=== PATIENT | female | born 2005 | race Caucasian/White ===

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

== ENCOUNTER 2023-01-04 23:12 | Emergency (ER) | payer MEDICAID ==
[~2023-01-04] VITALS: Ht 157.5 cm; Wt 125.0 kg
[2023-01-05 01:14] LABS: BILIRUBIN,URINE NEGATIVE (NEGATIVE); CLARITY,URINE CLEAR; COLOR,URINE YELLOW; GLUCOSE, URINE (UA) NEGATIVE (NEGATIVE); KETONES,URINE NEGATIVE (NEGATIVE); LEUKOCYTE ESTERASE ,URINE TRACE (NEGATIVE); NITRITE,URINE NEGATIVE (NEGATIVE); PROTEIN,URINE NEGATIVE (NEGATIVE)
[2023-01-05 01:22] LABS: BACTERIA,URINE TRACE /HPF; SQUAMOUS EPITHELIAL CELL,UR 0-2 /HPF; WBC,URINE RARE /HPF
--- NOTE | 2023-01-05 01:45 | ED General ---
General Chief Complaint: Abdominal/GI Problems Stated Complaint: SUN BURN,VOMITING Nursing Triage Note: PT AMB TO ED BY POV WITH C/O N/V, FEVER, AND SUNBURN. PT REPORTS SHE GOT SUNBURNED ON THURSDAY. N/V BEGAN TODAY. PT REPORTS ONE EPIDODE OF EMESIS, DENIES ABD PAIN. PT AFEBRILE UPON ARRIVAL. Allergies and Home Medications Allergies Coded Allergies: No Known Drug Allergies (Unverified , 06/15/22) Past Iplefan-Eflzkk-Flrrsg Hx Patient Social History Tobacco Use?: No Use of E-Cig and/or Vaping dev: No Substance use?: No Alcohol Use?: No Pt feels they are or have been: No Immunizations Up To Date Influenza Vaccine Up-to-Date: No; Not Current First/Initial COVID19 Vaccinat: X3 Second COVID19 Vaccination Kailash: 2020 Third COVID19 Vaccination Date: NONE Past Medical History Last Menstrual Period: Dec 29, 2022 Physical Exam Vital Signs Vital Signs - First Documented 01/05/23 00:15 Temp 37.0 Pulse 86 Resp 18 B/P (MAP) 129/90 (103) Pulse Ox 99 O2 Delivery Room Air Capillary Refill : Less Than 3 Seconds Height, Weight, BMI Height: '" Weight: lbs. oz. kg; 50.00 BMI Method: Progress/Results/Core Measures Suspected Sepsis SIRS Temperature: Pulse: 86 Respiratory Rate: 18 Blood Pressure 129 /90 Mean: 103 Results/Orders Lab Results Laboratory Tests Test 01/05/23 01:02 01/05/23 01:08 Range/Units Influenza Type A (RT-PCR) Not Detected Not Detecte Influenza Type B (RT-PCR) Not Detected Not Detecte SARS-CoV-2 RNA (RT-PCR) Not Detected Not Detecte Group A Streptococcus Screen NEGATIVE NEGATIVE Urine Color YELLOW Urine Clarity CLEAR Urine pH 7.0 5-9 Urine Specific [place] <=1.005 1.016-1.022 Urine Protein NEGATIVE NEGATIVE Urine Glucose (UA) NEGATIVE NEGATIVE Urine Ketones NEGATIVE NEGATIVE Urine Nitrite NEGATIVE NEGATIVE Urine Bilirubin NEGATIVE NEGATIVE Urine Urobilinogen 0.2 < = 1.0 MG/DL Urine Leukocyte Esterase TRACE H NEGATIVE Urine RBC (Auto) NEGATIVE NEGATIVE Urine RBC NONE /HPF Urine WBC RARE /HPF Urine Squamous Epithelial Cells 0-2 /HPF Urine Crystals NONE /LPF Urine Bacteria TRACE /HPF Urine Casts NONE /LPF Urine Mucus NEGATIVE /LPF Urine Culture Indicated NO My Orders Orders - SAMREEN STOKES DO Urine Bedside (01/05/23 00:54) Rapid Strep A Screen (01/05/23 00:54) Covid 19 Inhouse Test (01/05/23 00:54) Influenza A And B By Pcr (01/05/23 00:54) Ua Culture If Indicated (01/05/23 00:54) Throat Culture Strep A Confirm (01/05/23 01:02) Vital Signs/I&O 01/05/23 00:15 Temp 37.0 Pulse 86 Resp 18 B/P (MAP) 129/90 (103) Pulse Ox 99 O2 Delivery Room Air Capillary Refill : Less Than 3 Seconds Blood Pressure Mean: 103 Departure Impression Primary Impression: Sunburn Additional Impression: Nausea & vomiting Disposition: 01 HOME, SELF-CARE Condition: Stable Departure-Patient Inst. Decision time for Depature: 01:40 Referrals: [facility] (PCP/Family) Primary Care Physician Patient Instructions: Play It Safe in the Sun, Sunburn, Nausea and Vomiting, Adult Add. Discharge Instructions: HOME, REST LOTS OF CLEAR LIQUIDS TYLENOL AND MOTRIN NEEDED FOR PAIN OR FEVER FOLLOW UP WITH [facility] IN 2-3 DAYS IF NO BETTER All discharge instructions reviewed with patient and/or family. Voiced underst anding. SAMREEN STOKES DO Jan 05, 2023 01:45
[2023-01-05 01:52] VITALS: BP 125/87
== END 2023-01-05 01:52 | disposition home or self-care (01) ==
LOC: EDUNIT# 23:12 → ER 23:17
DX: L55.9 Sunburn, unspecified (principal); R11.2 Nausea with vomiting, unspecified; Z20.822 Contact with and (suspected) exposure to COVID-19
CPT/HCPCS: 81000; 84703; 87430; 87636; 99283